=== PATIENT | female | born 2000 | race African-American/Black ===

== ENCOUNTER 2022-10-21 21:00 | Emergency (ER) | payer MEDICAID ==
[~2022-10-21] VITALS: Ht 167.6 cm; Wt 190.0 kg
[2022-10-21] MEDS ORDERED: IBUPROFEN 600MG TABLET PO ONE (23:15)
[2022-10-21] MEDS ORDERED: IBUP-2029 MT (23:17)
[2022-10-21 23:46] VITALS: BP 138/98
== END 2022-10-22 00:14 | disposition home or self-care (01) ==
LOC: ER 21:00
DX: S90.02XA Contusion of left ankle, initial encounter (principal); X58.XXXA Exposure to other specified factors, initial encounter; Y93.89 Activity, other specified; Y92.89 Other specified places as the place of occurrence of the external cause; Y99.8 Other external cause status
CPT/HCPCS: 73600; 81025; 99283; Z7610

== ENCOUNTER 2024-11-27 14:58 | Emergency (ER) | payer OTHER ==
[~2024-11-27] VITALS: Ht 167.6 cm; Wt 82.0 kg
[~2024-11-27 14:58] MED LIST: IBUP-2029 MT
[2024-11-27 15:02] VITALS: TEMP 36.9; O2SAT 100
[2024-11-27] MEDS: ONDANSETRON 4MG ODT PO STA (15:40)
[2024-11-27 16:08] LABS: BASOPHILS % 0.3 % (0.0-2.0); EOSINOPHILS % 0.1 % (0.0-5.0); HEMATOCRIT. 39.9 % (36.0-48.0); HEMOGLOBIN. 12.9 g/dL (12.0-16.0); LYMPHOCYTES % 11.2 % (20.0-50.0); MEAN CORPUSCULAR HEMOGLOBIN 28.1 pg (28.0-32.0); MEAN CORPUSCULAR HGB CONC 32.3 g/dL (31.0-37.0); MEAN CORPUSCULAR VOLUME 87.1 fL (81.0-99.0); MEAN PLATELET VOLUME 8.5 fl (7.4-10.4); NEUTROPHILS % 85.4 % (40.0-76.0); PLATELET 339 x1000/uL (130-400); RED BLOOD CELL COUNT 4.59 mill/uL (4.2-5.4); RED CELL DISTRIBUTION WIDTH 14.7 % (11.6-14.6); WHITE BLOOD COUNT 14.3 x1000/uL (4.5-11.0)
[2024-11-27 16:20] LABS: CHLORIDE 108 mEq/L (98-107); POTASSIUM 3.4 mEq/L (3.5-5.1); SODIUM 143 mEq/L (136-145)
[2024-11-27 16:21] LABS: CARBON DIOXIDE 21 mEq/L (21-32)
[2024-11-27 16:22] LABS: CALCIUM 10.7 mg/dL (8.7-10.4)
[2024-11-27 16:26] LABS: CREATININE 0.8 mg/dL (0.6-1.0); GLUCOSE 117 mg/dL (70-105)
[2024-11-27 16:27] LABS: UREA NITROGEN BLOOD 9 mg/dL (9-23)
[2024-11-27 16:28] LABS: ALANINE AMINOTRANSFERASE 12 IU/L (10-49); ALBUMIN 5.1 g/dL (3.2-4.8); ASPARTATE AMINOTRANSFERASE 19 IU/L (<34); HCG SCREEN NEGATIVE
[2024-11-27 16:29] LABS: BILIRUBIN DIRECT 0.2 mg/dL (<=3.0); BILIRUBIN TOTAL 0.7 mg/dL (0.1-1.0); PROTEIN TOTAL 7.7 g/dL (6.0-8.3)
[2024-11-27 16:30] LABS: TROPONIN I HIGH SENSITIVITY < 4 ng/L (3.0-34)
[2024-11-27] MEDS: HALOPERIDOL LACTATE 5MG/ML VIAL IM ONE (17:04)
[2024-11-27 17:28] VITALS: BP 110/85; PULSE 83; RESP 16; O2SAT 98
[2024-11-27 18:17] LABS: TROPONIN I HIGH SENSITIVITY < 4 ng/L (3.0-34)
[2024-11-27] MEDS ORDERED: DOXY1TAB3 MT (18:19)
== END 2024-11-27 18:37 | disposition home or self-care (01) ==
LOC: ER 14:58
DX: R11.15 Cyclical vomiting syndrome unrelated to migraine (principal); R11.2 Nausea with vomiting, unspecified; R10.13 Epigastric pain; Z79.899 Other long term (current) drug therapy
CPT/HCPCS: 99285; 71045; 80076; 80048; 84703; 83690; 85025; 84484; 36415; 93005; 96372; Q0162; J1630